=== PATIENT | female | born 1990 | race Two or more races ===

== ENCOUNTER 2022-10-01 19:46 | Emergency (ER) | payer MEDICAID, OTHER ==
[~2022-10-01] VITALS: Ht 170.2 cm; Wt 61.0 kg
[2022-10-01 21:47] LABS: Urine Bacteria FEW /hpf (None Seen); Urine Blood Negative /uL (Negative); Urine Mucus MODERATE (None Seen); Urine Specific Gravity 1.036 (1.001-1.035); Urine WBC 12 /hpf (0 - 5)
[2022-10-01 23:34] LABS: Basophils # (auto) 0.1 10 ^3/uL (0-0.2); Basophils % (auto) 0.5 % (0.0-2.0); Eosinophils # (auto) 0.1 10 ^3/uL (0-0.8); Eosinophils % (auto) 0.7 % (0.0-7.0); Hematocrit 33.7 % (36.0-46.0); Hemoglobin 11.1 g/dL (12.2-16.2); Lymphocytes # (auto) 3.3 10 ^3/uL (0.4-5.4); Lymphocytes % (auto) 25.5 % (10.0-50.0); Mean Corpuscular Hgb Conc. 32.8 g/dL (32.0-36.0); Mean Corpuscular Volume 88.6 fL (80.0-100.0); Monocytes # (auto) 1.2 10 ^3/uL (0-1.3); Neutrophils # (auto) 8.2 10 ^3/uL (1.6-8.6); Neutrophils % (auto) 64.3 % (37.0-80.0); Nucleated Red Blood Cells % 0.2 %; Red Blood Cells 3.81 10^6/uL (4.0-5.20); Red Cell Distribution Width 14.8 % (11.8-14.3); White Blood Cell 12.8 10^3/uL (4.4-10.8)
[2022-10-01 23:41] LABS: Albumin 3.7 g/dL (3.4-5.0); Calcium 9.6 mg/dL (8.5-10.1); Potassium 3.7 mmol/L (3.5-5.1)
[2022-10-01 23:43] LABS: BUN/Creatinine Ratio 12.9
[2022-10-01 23:46] LABS: Bilirubin, Total 0.6 mg/dL (0.2-1.0); Total Protein 7.8 g/dL (6.4-8.2)
[2022-10-02] MEDS ORDERED: CEPH-510 PO (00:56)
[2022-10-02] MEDS ORDERED: ACET-1158 PO (00:56)
[2022-10-02] MEDS ORDERED: cefTRIAXone SOD 1,000 MG VL IM ONE (01:00)
[2022-10-02] MEDS ORDERED: ONDANSETRON ODT 4 MG TAB PO ONE (01:15)
[2022-10-02 07:52] VITALS: BP 135/71
== END 2022-10-02 01:45 | disposition home or self-care (01) ==
LOC: ER 19:49
DX: O23.41 Unspecified infection of urinary tract in pregnancy, first trimester (principal); O67.9 Intrapartum hemorrhage, unspecified; N39.0 Urinary tract infection, site not specified; R10.2 Pelvic and perineal pain; F12.10 Cannabis abuse, uncomplicated; Z3A.01 Less than 8 weeks gestation of pregnancy
CPT/HCPCS: 36415; 76801; 80053; 81001; 84702; 85025; 96372; 99284; J0696; Q0162